=== PATIENT | male | born 1960 | race Caucasian/White ===

== ENCOUNTER 2020-05-04 10:57 | Inpatient (IN) | payer OTHER ==
[~2020-05-04] VITALS: Ht 182.9 cm; Wt 78.5 kg
[~2020-05-04 10:57] MED LIST: ASPIRIN EC81 MG PO; ATORVASTATIN CA40 MG PO; COZAAR100 MG PO; CRESTOR20 MG PO; DILTIAZEM 24HR120 M1 PO; ELIQUIS 5 MG TAB5 MG PO; GLUCOPHAGE500 MG PO; K-DUR TAB 10 M10 MEQ PO; LASIX40 MG PO; PANTOPRAZOLE SO40 MG PO
[2020-05-04 11:52] LABS: HEMOGLOBIN 13.8 gm/dl (14.0-17.5); RED BLOOD COUNT 5.1 M/UL (4.20-5.50); WHITE BLOOD COUNT 10.8 K/UL (4.5-11.0)
[2020-05-04 12:26] LABS: BUN/CREATININE RATIO 37 (0-10)
[2020-05-04 20:31] LABS: HEMOGLOBIN 12.8 gm/dl (14.0-17.5)
[2020-05-05 04:20] LABS: WHITE BLOOD COUNT 10.2 K/UL (4.5-11.0)
[2020-05-05 04:23] LABS: RED BLOOD COUNT 4.32 M/UL (4.20-5.50)
[2020-05-05 04:47] LABS: BUN/CREATININE RATIO 34 (0-10)
[2020-05-05] MEDS ORDERED: JANUVIA100 MG PO (09:52)
[2020-05-05] MEDS ORDERED: NORVASC10 MG PO (09:52)
[2020-05-05] MEDS ORDERED: VITAMIN C 500500 MG PO (09:53)
[2020-05-05] MEDS ORDERED: ATORVASTATIN CA20 MG PO (09:53)
[2020-05-05] MEDS ORDERED: BUMETANIDE2 MG PO (09:54)
[2020-05-05] MEDS ORDERED: ACULAR 0.5% OP S5 ML EYEBOTH (09:55)
[2020-05-05] MEDS ORDERED: ZAROXOLYN/DIUL2.5 MG PO (09:55)
[2020-05-05] MEDS ORDERED: LOPRESSOR50 MG PO (09:57)
[2020-05-05] MEDS ORDERED: PREDNISOLONE ACE5 ML OP (09:58)
[2020-05-05] MEDS ORDERED: LEVEMIR100 UNIT/1 SC (10:21)
[2020-05-05] MEDS ORDERED: ZINC-22050 MG PO (10:22)
[2020-05-05] MEDS ORDERED: CO Q-10100 MG PO (10:22)
[2020-05-05 11:56] LABS: HEMOGLOBIN 11.8 gm/dl (14.0-17.5)
[2020-05-06 02:55] LABS: BUN/CREATININE RATIO 29 (0-10)
[2020-05-07 02:43] LABS: BUN/CREATININE RATIO 27 (0-10)
[2020-05-07] MEDS ORDERED: FLAGYL500 MG PO (10:07)
[2020-05-07] MEDS ORDERED: LEVOFLOXACIN750 MG PO (10:07)
== END 2020-05-07 12:34 | disposition home or self-care (01) | DRG 377 ==
LOC: ER1 10:57 → CDU 15:03 → PROG CARE 15:03
PROVIDERS: Emergency Medicine; Internal Medicine Gastroenterology; Physician Assistant; ADMIT Internal Medicine
PROC: 0DJ08ZZ Inspection of Upper Intestinal Tract, Via Natural or Artificial Opening Endoscopic (ICD-10-PCS; principal; 2020-05-06 15:30)
DX: K25.0 Acute gastric ulcer with hemorrhage (principal); I21.4 Non-ST elevation (NSTEMI) myocardial infarction; D62 Acute posthemorrhagic anemia; J90 Pleural effusion, not elsewhere classified; I50.32 Chronic diastolic (congestive) heart failure; K22.70 Barrett's esophagus without dysplasia; I16.0 Hypertensive urgency; I48.0 Paroxysmal atrial fibrillation; E78.5 Hyperlipidemia, unspecified; E11.9 Type 2 diabetes mellitus without complications; I25.10 Atherosclerotic heart disease of native coronary artery without angina pectoris; I11.0 Hypertensive heart disease with heart failure; R19.7 Diarrhea, unspecified; F17.210 Nicotine dependence, cigarettes, uncomplicated; K52.9 Noninfective gastroenteritis and colitis, unspecified; K21.9 Gastro-esophageal reflux disease without esophagitis; Z79.01 Long term (current) use of anticoagulants; Z79.82 Long term (current) use of aspirin; Z95.1 Presence of aortocoronary bypass graft; Z90.49 Acquired absence of other specified parts of digestive tract; Z79.4 Long term (current) use of insulin; Z82.49 Family history of ischemic heart disease and other diseases of the circulatory system; Z98.890 Other specified postprocedural states; Z83.3 Family history of diabetes mellitus; Z80.0 Family history of malignant neoplasm of digestive organs; Z20.822 Contact with and (suspected) exposure to COVID-19
CPT/HCPCS: 36415; 80048; 80053; 82550; 82553; 82962; 83605; 83690; 83874; 84484; 85014; 85018; 85025; 85610; 85730; 86850; 86900; 86901; 86920; 87040; 87635; 93005; 96365; 96366; 96367; 96368; 96372; 96375; 96376; 99285; C9113; J0360; J1644; J1956; J2270; J2405; J2550; J2704; J7030; J7040; Q9967

== ENCOUNTER 2020-05-12 17:44 | Emergency (ER) | payer OTHER ==
[~2020-05-12 17:44] MED LIST changes: +ACULAR 0.5% OP S5 ML EYEBOTH; +ATORVASTATIN CA20 MG PO; +BUMETANIDE2 MG PO; +CO Q-10100 MG PO; +FLAGYL500 MG PO; +JANUVIA100 MG PO; +LEVEMIR100 UNIT/1 SC; +LEVOFLOXACIN750 MG PO; +LOPRESSOR50 MG PO; +NORVASC10 MG PO; +PREDNISOLONE ACE5 ML OP; +VITAMIN C 500500 MG PO; +ZAROXOLYN/DIUL2.5 MG PO; +ZINC-22050 MG PO
[2020-05-12 19:31] LABS: BUN/CREATININE RATIO 23 (0-10)
[2020-05-12 19:48] LABS: HEMOGLOBIN 12.7 gm/dl (14.0-17.5); RED BLOOD COUNT 4.71 M/UL (4.20-5.50); WHITE BLOOD COUNT 6.5 K/UL (4.5-11.0)
== END 2020-05-12 22:31 | disposition home or self-care (01) ==
LOC: ER1 17:44
PROVIDERS: Family Medicine
DX: R07.89 Other chest pain (principal); E11.65 Type 2 diabetes mellitus with hyperglycemia; R42 Dizziness and giddiness; R19.7 Diarrhea, unspecified; I25.2 Old myocardial infarction; I25.10 Atherosclerotic heart disease of native coronary artery without angina pectoris; I48.91 Unspecified atrial fibrillation; Z95.1 Presence of aortocoronary bypass graft
CPT/HCPCS: 71045; 80053; 82550; 82553; 83605; 83735; 83874; 84484; 85025; 93005; 96374; 99284; J2405; J7030

== ENCOUNTER 2020-07-07 17:19 | Emergency (ER) | payer OTHER ==
[2020-07-07 18:19] LABS: HEMOGLOBIN 14.1 gm/dl (14.0-17.5); RED BLOOD COUNT 4.76 M/UL (4.20-5.50); WHITE BLOOD COUNT 7.9 K/UL (4.5-11.0)
[2020-07-07 18:36] LABS: BUN/CREATININE RATIO 66 (0-10)
[2020-07-08] MEDS ORDERED: CYCLOBENZAPRINE10 MG PO (11:06)
== END 2020-07-07 23:30 | disposition home or self-care (01) ==
LOC: ER1 17:19
PROVIDERS: Emergency Medicine
DX: M25.512 Pain in left shoulder (principal); I10 Essential (primary) hypertension; E11.9 Type 2 diabetes mellitus without complications; I25.10 Atherosclerotic heart disease of native coronary artery without angina pectoris; E78.5 Hyperlipidemia, unspecified
CPT/HCPCS: 71045; 71250; 71275; 72125; 72128; 73030; 80053; 82550; 82553; 83874; 84484; 85025; 93005; 96374; 96375; 96376; 99284; J1885; J2270; J2405; Q9967

== ENCOUNTER 2020-07-08 07:47 | Emergency (ER) | payer OTHER ==
[2020-07-08 09:29] LABS: HEMOGLOBIN 14.2 gm/dl (14.0-17.5); RED BLOOD COUNT 4.82 M/UL (4.20-5.50); WHITE BLOOD COUNT 9.6 K/UL (4.5-11.0)
[2020-07-08 09:32] LABS: BUN/CREATININE RATIO 62 (0-10)
[2020-07-08] MEDS ORDERED: CYCLOBENZAPRINE10 MG PO (11:06)
== END 2020-07-08 11:31 | disposition home or self-care (01) ==
LOC: ER1 07:47
PROVIDERS: Physician Assistant
DX: M54.2 Cervicalgia (principal); M79.602 Pain in left arm; R11.2 Nausea with vomiting, unspecified; E11.9 Type 2 diabetes mellitus without complications; I10 Essential (primary) hypertension; Z90.49 Acquired absence of other specified parts of digestive tract
CPT/HCPCS: 80053; 82009; 82550; 82553; 82800; 83874; 84484; 85025; 93005; 96374; 96375; 99283; J1885; J2550; J7030

== ENCOUNTER 2020-08-10 21:03 | Emergency (ER) | payer OTHER ==
[~2020-08-10 21:03] MED LIST changes: +CYCLOBENZAPRINE10 MG PO
[2020-08-10 21:58] LABS: HEMOGLOBIN 15.9 gm/dl (14.0-17.5); RED BLOOD COUNT 5.32 M/UL (4.20-5.50); WHITE BLOOD COUNT 7.9 K/UL (4.5-11.0)
[2020-08-10 22:18] LABS: BUN/CREATININE RATIO 35 (0-10)
[2020-08-11] MEDS ORDERED: ZOFRAN ODT 4 MG4 MG SL (02:19)
== END 2020-08-11 02:57 | disposition home or self-care (01) ==
LOC: ER1 21:03
PROVIDERS: Physician Assistant Medical
DX: R10.9 Unspecified abdominal pain (principal); R11.2 Nausea with vomiting, unspecified; I11.0 Hypertensive heart disease with heart failure; I50.9 Heart failure, unspecified; Z95.1 Presence of aortocoronary bypass graft; Z90.49 Acquired absence of other specified parts of digestive tract
CPT/HCPCS: 80053; 82550; 82553; 82962; 83874; 84484; 85025; 85610; 93005; 96374; 96375; 99284; C9113; J2405; Q9967

== ENCOUNTER 2021-04-01 15:46 | Observation (INO) | payer OTHER ==
[~2021-04-01] VITALS: Ht 182.9 cm; Wt 72.6 kg
[~2021-04-01 15:46] MED LIST changes: -LEVEMIR100 UNIT/1 SC; +LEVEMIR100 UNIT/1 SQ; +ZOFRAN ODT 4 MG4 MG SL
[2021-04-01 16:01] LABS: HEMOGLOBIN 10.3 gm/dl (14.0-17.5); RED BLOOD COUNT 3.67 M/UL (4.20-5.50); WHITE BLOOD COUNT 8.1 K/UL (4.5-11.0)
[2021-04-01 16:32] LABS: BUN/CREATININE RATIO 39 (0-10)
[2021-04-01] MEDS ORDERED: POTASSIUM CHLO10 ME2 PO (18:38)
[2021-04-02 04:56] LABS: HEMOGLOBIN 11.7 gm/dl (14.0-17.5); WHITE BLOOD COUNT 8.3 K/UL (4.5-11.0)
[2021-04-02 04:57] LABS: RED BLOOD COUNT 4.21 M/UL (4.20-5.50)
[2021-04-02 05:15] LABS: BUN/CREATININE RATIO 40 (0-10)
[2021-04-02] MEDS ORDERED: ZAROXOLYN/DIUL2.5 MG PO (10:44)
[2021-04-02] MEDS ORDERED: ASPIRIN EC81 MG PO (10:44)
--- NOTE | 2021-04-02 12:00 | NUR ---
NECROTIC RIGHT GREAT TOE NOTED. PT SEES OUTPT PODIATRY ACCORDING TO HIM. JASMYNE GALEAS IN ROOM WITH PATIENT AT THIS TIME AND IS AWARE OF TOE.
[2021-04-02] MEDS ORDERED: ATORVASTATIN CA20 MG PO (17:28)
[2021-04-02] MEDS ORDERED: NITROGLYCERIN0.4 MG SL (17:28)
[2021-04-02] MEDS ORDERED: CARVEDILOL3.125 MG PO (17:28)
--- NOTE | 2021-04-02 18:21 | NUR ---
PT LEFT D/C FOLDER. ATTEMPTED TO CONTACT PT BY PHONE NUMBER PER FACE SHEET. NO ANSWER. WILL HOLD FOLDER AT DESK FOR PATIENT.
== END 2021-04-02 18:16 | disposition home or self-care (01) ==
LOC: ER1 15:46 → CDU 17:53 → CCU 04-02 10:47
PROVIDERS: Emergency Medicine; ADMIT Internal Medicine
DX: R07.89 Other chest pain (principal); I25.10 Atherosclerotic heart disease of native coronary artery without angina pectoris; I11.0 Hypertensive heart disease with heart failure; I50.32 Chronic diastolic (congestive) heart failure; I48.0 Paroxysmal atrial fibrillation; E78.5 Hyperlipidemia, unspecified; E11.621 Type 2 diabetes mellitus with foot ulcer; L97.519 Non-pressure chronic ulcer of other part of right foot with unspecified severity; K21.9 Gastro-esophageal reflux disease without esophagitis; E87.6 Hypokalemia; F12.90 Cannabis use, unspecified, uncomplicated; R91.8 Other nonspecific abnormal finding of lung field; K91.89 Other postprocedural complications and disorders of digestive system; K56.7 Ileus, unspecified; K42.9 Umbilical hernia without obstruction or gangrene; Z20.822 Contact with and (suspected) exposure to COVID-19; Z95.1 Presence of aortocoronary bypass graft; Z98.890 Other specified postprocedural states; Z91.14 Patient's other noncompliance with medication regimen; Z91.19 Patient's noncompliance with other medical treatment and regimen; Z79.4 Long term (current) use of insulin; Z79.01 Long term (current) use of anticoagulants; Z79.82 Long term (current) use of aspirin; Z79.899 Other long term (current) drug therapy; Z90.49 Acquired absence of other specified parts of digestive tract
CPT/HCPCS: ECHO; 0240U; 70450; 71045; 78452; 80053; 80061; 80307; 82550; 82553; 82962; 83036; 83735; 83874; 83880; 84100; 84439; 84443; 84484; 85025; 85610; 85730; 93005; 93017; 93306; 96372; 96374; 96375; 99285; A9502; C9113; G0378; J1650; J2785; J3475

== ENCOUNTER 2021-06-28 12:27 | Emergency (ER) | payer OTHER ==
[~2021-06-28 12:27] MED LIST changes: +CARVEDILOL3.125 MG PO; +LEVEMIR FL100 UNIT/1 SQ; -LEVEMIR100 UNIT/1 SQ; +NITROGLYCERIN0.4 MG SL; +POTASSIUM CHLO10 ME1 PO
[2021-06-28 12:39] LABS: HEMOGLOBIN 11.9 gm/dl (14.0-17.5); WHITE BLOOD COUNT 8.9 K/UL (4.5-11.0)
[2021-06-29] MEDS ORDERED: PROAIR HFA8.5 GM INH (16:12)
[2021-06-29] MEDS ORDERED: VITAMIN C500 M4 PO (16:14)
[2021-06-29] MEDS ORDERED: AMLODIPINE BESYL5 MG PO (16:14)
[2021-06-29] MEDS ORDERED: VITAMIN D325 MCG PO (16:15)
[2021-06-29] MEDS ORDERED: LOSARTAN POTASS25 MG PO (16:15)
[2021-06-29] MEDS ORDERED: PROTONIX40 MG PO (16:16)
[2021-07-01] MEDS ORDERED: AMLODIPINE BESYL5 MG PO (09:21)
[2021-07-01] MEDS ORDERED: BUMETANIDE1 MG PO (09:21)
[2021-07-01] MEDS ORDERED: ISOSORBIDE MONO30 MG PO (09:21)
== END 2021-06-28 17:47 | disposition home or self-care (01) ==
LOC: ER1 12:27
DX: R07.89 Other chest pain (principal); I25.2 Old myocardial infarction; I50.9 Heart failure, unspecified; Z95.1 Presence of aortocoronary bypass graft; Z87.891 Personal history of nicotine dependence
CPT/HCPCS: 71045; 80053; 82550; 82553; 83880; 84484; 85025; 93005; 99285

== ENCOUNTER 2021-11-13 20:18 | Emergency (ER) | payer OTHER ==
[~2021-11-13 20:18] MED LIST changes: +AMLODIPINE BESYL5 MG PO; +BUMETANIDE1 MG PO; +ISOSORBIDE MONO30 MG PO; +LOSARTAN POTASS25 MG PO; +PROAIR HFA8.5 GM INH; +PROTONIX40 MG PO; +VITAMIN C500 M4 PO; +VITAMIN D325 MCG PO
[2021-11-13 21:48] LABS: HEMOGLOBIN 12.2 gm/dl (14.0-17.5); RED BLOOD COUNT 4.12 M/UL (4.20-5.50); WHITE BLOOD COUNT 8.6 K/UL (4.5-11.0)
[2021-11-13 22:06] LABS: BUN/CREATININE RATIO 44 (0-10)
== END 2021-11-14 01:15 | disposition home or self-care (01) ==
LOC: ER1 20:18
PROVIDERS: Family Medicine
DX: R07.89 Other chest pain (principal); D64.9 Anemia, unspecified; E11.22 Type 2 diabetes mellitus with diabetic chronic kidney disease; N18.9 Chronic kidney disease, unspecified; Z95.1 Presence of aortocoronary bypass graft; Z79.82 Long term (current) use of aspirin; Z20.822 Contact with and (suspected) exposure to COVID-19
CPT/HCPCS: 71045; 80053; 82550; 82553; 83735; 84439; 84443; 84484; 85025; 93005; 99285; U0002